=== PATIENT | female | born 1960 | race Caucasian/White ===

== ENCOUNTER 2025-03-07 21:37 | Emergency (ER) | payer MEDICARE, MEDICAID ==
[~2025-03-07] VITALS: Ht 160 cm; Wt 68.0 kg
[2025-03-07 21:56] VITALS: TEMP 36.3; O2SAT 97
[2025-03-07 23:42] LABS: BASOPHILS % 0.4 % (0.0-2.0); EOSINOPHILS % 1.4 % (0.0-5.0); HEMATOCRIT. 46.3 % (36.0-48.0); HEMOGLOBIN. 15.6 g/dL (12.0-16.0); LYMPHOCYTES % 27.4 % (20.0-50.0); MEAN PLATELET VOLUME 12.1 fl (7.4-10.4); MONOCYTES % 7.3 % (2.0-8.0); NEUTROPHILS % 63.5 % (40.0-76.0); PLATELET 279 x1000/uL (130-400); RED BLOOD CELL COUNT 5.44 mill/uL (4.2-5.4); RED CELL DISTRIBUTION WIDTH 14.1 % (11.6-14.6)
[2025-03-07 23:47] LABS: CREATININE 1.2 mg/dL (0.6-1.0); UREA NITROGEN BLOOD 24.0 mg/dL (9-23)
[2025-03-08] MEDS ORDERED: SODIUM CHLORIDE 0.9% 1,000 ML IV ONE
[2025-03-08 00:18] LABS: TROPONIN I HIGH SENSITIVITY 4 ng/L (3.0-34)
[2025-03-08 00:19] LABS: ASPARTATE AMINOTRANSFERASE 19 IU/L (<34); BILIRUBIN DIRECT 0.1 mg/dL (<=3.0); BILIRUBIN TOTAL 0.6 mg/dL (0.1-1.0); PROTEIN TOTAL 7.5 g/dL (6.0-8.3)
[2025-03-08 00:27] LABS: BG BASE EXCESS 1.3 mmol/L (-2.0-3.0); BG CARBOXYHEMOGLOBIN 0.9 % (0.5-1.5); BG DEOXYHEMOGLOBIN 3.7 % (0.0-5.0); BG FRACTION INSPIRED OXYGEN 21; BG HCO3 ACT 25.9 mmol/L (21.0-28.0); BG METHEMOGLOBIN 0.1 % (0.5-1.5); BG OXYGEN SATURATION 96.3 % (94.0-98.0); BG OXYHEMOGLOBIN 95.3 % (94.0-98.0); BG PCO2 41.1 mmHg (32.0-45.0); BG PH 7.418 (7.350-7.450); BG PO2 82.5 mmHg (83.0-108.0); BG SAMPLE SITE LEFT RADIAL; BG TOTAL HEMOGLOBIN 16.1 g/dL (12.0-16.0); BG VENT MODE ROOM AIR
[2025-03-08] MEDS: SODIUM CHLORIDE 0.9% 1,000 ML IV ONE (00:45)
[2025-03-08] MEDS: INSULIN REGULAR (HUMULIN R) 1000UNITS/10ML VIAL IV ONE (02:46)
[2025-03-08 04:47] VITALS: BP 139/88; PULSE 70; RESP 14; O2SAT 97
[2025-03-08 05:08] LABS: CLARITY URINE CLEAR (CLEAR); COLOR URINE YELLOW (YELLOW); GLUCOSE URINE 3+ (NEGATIVE); KETONES URINE TRACE (NEGATIVE); LEUKOCYTE ESTERASE URINE NEGATIVE (NEGATIVE); NITRITE URINE NEGATIVE (NEGATIVE); OCCULT BLOOD URINE NEGATIVE (NEGATIVE); PH URINE 5.5 (4.5-8.0); PROTEIN URINE NEGATIVE (NEGATIVE); SPECIFIC GRAVITY URINE 1.033 (1.005-1.030); UROBILINOGEN URINE 0.2 E.U./dL (0.2-1.0)
[2025-03-08 06:32] LABS: SQUAMOUS EPITHELIAL CELL URINE FEW /lpf (RARE/1+)
[2025-03-08 06:33] LABS: BACTERIA URINE NONE SEEN; RBC URINE 0-2 /hpf (0-2); WBC URINE 0-2 /hpf (0-2)
== END 2025-03-08 04:49 | disposition home or self-care (01) ==
LOC: ER 21:37
DX: E11.65 Type 2 diabetes mellitus with hyperglycemia (principal); I10 Essential (primary) hypertension; Z98.890 Other specified postprocedural states
CPT/HCPCS: 99285; 71045; 80076; 80048; 81003; 82010; 83690; 85025; 84484; 36415; 93005; 96374; 96361; 82962; 82805; 82375; 36600; J7030; J1815